=== PATIENT | male | born 1945 | race Caucasian/White ===

== ENCOUNTER → 2016-11-17 | Outpatient (CLI) | payer BC ==
[~2016-11-17] MED LIST: LISI-788 PO; NEXIUM
[2016-11-17 17:02] LABS: ALT/SGPT 28 U/L (12-78); BLOOD UREA NITROGEN 22 mg/dl (7-18); CALCIUM 9.2 mg/dl (8.5-10.1); CARBON DIOXIDE 30 mmol/L (21-32); CHLORIDE 104 mmol/L (98-107); CHOLESTEROL 141 mg/dl (0-200); GLUCOSE 93 mg/dl (70-99); POTASSIUM 4.1 mmol/L (3.5-5.1); SODIUM 140 mmol/L (136-145); TRIGLYCERIDES 152 mg/dl (0-150); VERY LOW DENSITY LIPOPROT CALC 30 mg/dl
[2016-11-17 17:07] LABS: ALB/GLOB RATIO 0.9 (0.9-2); ALKALINE PHOSPHATASE 112 U/L (45-117); AST/SGOT 23 U/L (15-37); CHOLESTEROL/HDL RATIO 2.9; HDL CHOLESTEROL 49 mg/dl; LDL CHOLESTEROL CALCULATED 62 mg/dl
[2016-11-18 05:49] LABS: ESTIMATED AVERAGE GLUCOSE 137 mg/dl; HA1C FLAG Normal (Normal)
--- NOTE | 2016-11-29 08:10 | CODING QUERY MEDICAL NECESSITY ---
CQSUPPORTING DIAGNOSIS NEEDED A supporting diagnosis is required for the test/procedure performed on this patient in order for us to be reimbursed by the patient's insurance. Please provide a supporting diagnosis for the following test/procedure listed below next to the test name along with your signature. *If there is no additional diagnosis for this patient that would support the following test/procedure please document that below next to the test/procedure. Test(s)/Procedure(s) that require a supporting diagnosis: DOS 11/17/16 PROSTATE SPECIFIC TEST Provider Signature: Date: Thank you Gabriella Dixon [employer] Once completed, please kindly fax back to [phone] For questions please call [phone]
== END | disposition home or self-care (01) ==
LOC: C.LABBC 12:56
PROVIDERS: ATTEND Internal Medicine Geriatric Medicine
DX: Z00.00 Encounter for general adult medical examination without abnormal findings (principal); I10 Essential (primary) hypertension; R73.9 Hyperglycemia, unspecified

== ENCOUNTER → 2017-04-29 | Outpatient (CLI) | payer BC ==
[2017-04-29 10:35] LABS: BASO % 0.2 %; BASO ABS # 0.02 K/uL (0-0.2); EOS % 0.1 %; EOS ABS # 0.01 K/uL (0-0.5); HEMATOCRIT 43.1 % (42-52); HEMOGLOBIN 15.4 g/dL (14.0-18.0); IG# 0.04 K/uL (0.00-0.02); LYMPH % 5.9 %; LYMPH ABS # 0.72 K/uL (1.2-3.4); MEAN CELL VOLUME 87.6 fL (80-100); MEAN CORPUSCULAR HEMOGLOBIN 31.3 pg (25-34); MEAN CORPUSCULAR HGB CONC 35.7 g/dl (32-36); MEAN PLATELET VOLUME 9.7 fL (7.4-10.4); MONO ABS # 0.49 K/uL (0.11-0.59); NEUT % 89.5 %; NEUT ABS # 10.97 K/uL (1.4-6.5); PLATELET COUNT 240 K/uL (130-400); RED CELL DISTRIBUTION WIDTH CV 12.8 % (11.5-14.5); RED CELL DISTRIBUTION WIDTH SD 40.8 fL (36.4-46.3); WHITE BLOOD COUNT 12.25 K/uL (4.8-10.8)
== END | disposition home or self-care (01) ==
LOC: C.LAB1850 09:00
PROVIDERS: ATTEND Internal Medicine
DX: M10.9 Gout, unspecified (principal); M79.89 Other specified soft tissue disorders

== ENCOUNTER 2019-08-15 13:48 | Observation (INO) ==
--- NOTE | 2019-08-15 14:09 | Emergency Department Note ---
Impression & Plan Vasculitis, Cellulitis, Edema ED Provider Note NAME: NGUYEN VEGA AGE: 74 SEX: M : 1945 ARRIVES VIA: Walk-In INFORMANT: Patient ED PROVIDER(S): Raul Sandoval DO CHIEF COMPLAINT: Redness on the bilateral lower extremities HPI: Patient is a 74-year-old male who presents the ER for redness on his bilateral lower extremities. He notes it was on the left anterior rios and started 6 months ago. Has gotten worse over the past 3 weeks. He was placed on Keflex for a total of a week which he took 4 times a day. He notes the redness has gotten worse. Skin skin has minimal tenderness.. In the past 24 hours his right leg has become red and the cath and in the toes. There is no peeling off of skin. Denies any headache, change in vision, chest pain shortness of breath nausea vomiting or diarrhea. No dysuria urgency or frequency. He denies any other exacerbating or remitting factors. He does admit to new swelling in his lower extremities which is worse. ROS: See above HPI for pertinent positives & negatives. A total of 10 systems reviewed and were otherwise negative. PAST MEDICAL HISTORY:See Below PAST SURGICAL HISTORY:See Below FAMILY HISTORY:See Below SOCIAL HISTORY:See Below HOME MEDICATIONS:See Below ALLERGIES:See Below VITALS:See Below PHYSICAL EXAMINATION: GENERAL: Sitting up in bed, alert, well appearing, well nourished, no distress, non-toxic EYE EXAM: normal conjunctiva. PERRL and EOM's grossly intact. OROPHARYNX: no exudate, no erythema, lips, buccal mucosa, and tongue normal and mucous membranes are moist NECK: supple, no nuchal rigidity, no adenopathy, non-tender LUNGS: Clear to auscultation. Normal chest wall mechanics HEART: no murmurs, S1 normal and S2 normal ABDOMEN: abdomen soft, non-tender, normo-active bowel sounds, no masses, no rebound or guarding. BACK: Back is symmetrical on inspection and there is no deformity, no midline tenderness, no CVA tenderness. SKIN: no rashes and no bruising UPPER EXTREMITIES: upper extremities are grossly normal. LOWER EXTREMITIES: Pitting edema in the bilateral lower extremities which is equal. Petechiae on the right and left lower extremity. DPs are 2 out of 4. Gross sensation intact. Appears to have chronic erythema of the left mid rios. NEURO EXAM: Normal sensorium, cranial nerves II-XII grossly intact, normal speech, no gross weakness of arms, no gross weakness of legs. MEDICAL DECISION MAKING: Patient is a 74-year-old male that presents the ER referred in by PCP for erythema in the bilateral lower extremities. Seen by the PCP. Placed on Keflex and the rash has worsened over the past 2 weeks. He was referred into the ER today as at the office he was hypotensive with systolics in the 90s. Upon presentation he is otherwise well-appearing. IV was established blood work was obtained. Labs show no significant leukocytosis or anemia. BMP with slightly elevated creatinine 1.68 from a baseline of 1. LFTs bilirubin and lipase was unremarkable. Venous Doppler was negative bilaterally. Based on the exam I do question if he had a mild cellulitis in the left mid rios however I favor with a clear petechiae of the right lower extremity and left likely vasculitis in nature. Uncertain of the clear cause of this. Updated the patient and discussed with the hospitalist for observation. Held on any antibiotics while in the ER. Triage Nursing notes reviewed. Prior medical records reviewed Vital Signs: reviewed and remarkable for no significant abnormalities Differential diagnosis: Cellulitis, abscess, MRSA infection, DVT, necrotizing fasciitis, dermatitis, drug eruption, allergic reaction, as well as other pathologies. ER treatment provided: See below Diagnostics interpreted by me: ECG: Sinus rhythm rate 74 Normal axis No PVCs Normal QTC Cardiac Monitoring: An order was placed for continuous cardiac monitoring. The monitor shows a rate of 75 with sinus rhythm. Laboratory studies: As stated above and show below. Imaging studies: Duplex of the lower extremities was negative Consultation(s): Discussed with Dr. Don Castorena ED COURSE: Procedures: none Critical Care: None Past Med/Surg History Social History Preferred Language: Beninese Feels Safe at Home: Yes Smoking Status: Former smoker Allergies Allergies Allergy/AdvReac Type Severity Reaction Status Date / Time No Known Allergies Allergy Verified 08/15/19 14:56 Home Meds Home Medications Medication Instructions Recorded Confirmed amlodipine [Norvasc] 10 mg PO QAM 08/15/19 08/15/19 atorvastatin [Lipitor] 10 mg PO QAM 08/15/19 08/15/19 carvedilol [Coreg] 3.125 mg PO BID 08/15/19 08/15/19 hydrochlorothiazide 12.5 mg PO QAM 08/15/19 08/15/19 lisinopril [Zestril] 40 mg PO QAM 08/15/19 08/15/19 Previous Rx's Medication Instructions Recorded allopurinol 300 mg tablet 150 mg PO QPM #90 tab 05/16/19 cephalexin 500 mg capsule 500 mg PO QID #40 cap 08/06/19 Results & Data (ED) Vital Signs Vital Signs - 24 hr 08/15/19 13:50 08/15/19 16:08 Temperature 37.1 C Temperature Source Oral Pulse Rate 88 Pulse Rate [Right Finger] 75 Respiratory Rate 18 20 Respiratory Effort / Characteristics Non-Labored Non-Labored Respiratory Depth Normal Normal Respiratory Pattern Regular Blood Pressure 106/62 Blood Pressure [Right Arm] 124/64 Blood Pressure Mean 76 Blood Pressure Mean [Right Arm] 84 Pulse Oximetry 95 97 Oxygen Delivery Method Room Air Room Air Sepsis Recent Fever Within 48 Hours No Sepsis New/Unexplained Change in Mental Status No Sepsis Action Taken by Nursing No Action Required Laboratory Data Result diagrams: 08/15/19 14:35 08/15/19 14:35 Lab Results 08/15/19 08/15/19 08/15/19 Range/Units 14:35 14:35 14:35 WBC 9.65 (4.8-10.8) K/uL RBC 3.99 L (4.7-6.1) M/uL Hgb 12.2 L (14.0-18.0) g/dL Hct 35.7 L (42-52) % MCV 89.5 (80-100) fL MCH 30.6 (25-34) pg MCHC 34.2 (32-36) g/dL RDW Std Deviation 43.6 (36.4-46.3) fL RDW Coeff of Ron 13.3 (11.5-14.5) % Plt Count 273 (130-400) K/uL MPV 9.3 (7.4-10.4) fL Immature Gran % (Auto) 0.3 % Neut % (Auto) 71.3 % Lymph % (Auto) 15.6 % Kay % (Auto) 11.8 % Eos % (Auto) 0.7 % Baso % (Auto) 0.3 % Immature Gran # (Auto) 0.03 H (0.00-0.02) K/uL Neut # (Auto) 6.87 H (1.4-6.5) K/uL Lymph # (Auto) 1.51 (1.2-3.4) K/uL Kay # (Auto) 1.14 H (0.11-0.59) K/uL Eos # (Auto) 0.07 (0-0.5) K/uL Baso # (Auto) 0.03 (0-0.2) K/uL Sodium 135 L (136-145) mmol/L Potassium 4.1 (3.5-5.1) mmol/L Chloride 105 (98-107) mmol/L Carbon Dioxide 22 (21-32) mmol/L Anion Gap 8.0 (3-11) BUN 39 H (7-18) mg/dl Creatinine 1.68 H (0.6-1.4) mg/dl Est Cr Clr Drug Dosing 49.6 ml/min Est GFR ( Amer) 46.3 Est GFR (Non-Af Amer) 40.0 BUN/Creatinine Ratio 23.3 H (10-20) Glucose 109 H (70-99) mg/dl Calcium 8.9 (8.5-10.1) mg/dl Total Bilirubin 0.7 (0.2-1) mg/dl AST 38 H (15-37) U/L ALT 55 (12-78) U/L Alkaline Phosphatase 114 (45-117) U/L Troponin I < 0.015 (0-0.045) ng/ml Total Protein 7.8 (6.4-8.2) gm/dl Albumin 2.8 L (3.4-5.0) gm/dl Globulin 5.0 H (2.5-4.0) gm/dl Albumin/Globulin Ratio 0.6 L (0.9-2) Lipase 191 (73-393) U/L Discharge Plan Visit Data Chief Complaint: Infection Stated Complaint: INFECTION IN BOTH LEGS ED Provider: Raul Sandoval Discharge Problem: Vasculitis, Cellulitis, Edema Forms Stand Alone Forms: [facility] Prescriptions Prescriptions: No Action allopurinol 300 mg tablet 150 mg PO QPM Qty: 90 RF: 3 cephalexin [Keflex] 500 mg capsule 500 mg PO QID Qty: 40 RF: 0 atorvastatin [Lipitor] 10 mg tablet 10 mg PO QAM RF: 0 carvedilol [Coreg] 3.125 mg tablet 3.125 mg PO BID RF: 0 amlodipine [Norvasc] 10 mg tablet 10 mg PO QAM RF: 0 lisinopril [Zestril] 40 mg tablet 40 mg PO QAM RF: 0 hydrochlorothiazide 12.5 mg tablet 12.5 mg PO QAM RF: 0 Discharge Problem: Cellulitis Qualifiers: Site of cellulitis: unspecified site Qualified Code(s): L03.90 - Cellulitis, unspecified Edema Qualifiers: Edema type: unspecified Qualified Code(s): R60.9 - Edema, unspecified
[2019-08-15 14:47] LABS: Basophils # (auto) 0.03 K/uL (0-0.2); Basophils % (auto) 0.3 %; Eosinophils # (auto) 0.07 K/uL (0-0.5); Eosinophils % (auto) 0.7 %; Hematocrit (blood only) 35.7 % (42-52); Hemoglobin 12.2 g/dL (14.0-18.0); Immature Granulocytes # (auto) 0.03 K/uL (0.00-0.02); Immature Granulocytes % (auto) 0.3 %; Lymphocytes # (auto) 1.51 K/uL (1.2-3.4); Lymphocytes % (auto) 15.6 %; Mean Corpuscular Hemoglobin 30.6 pg (25-34); Mean Corpuscular Hgb Conc 34.2 g/dL (32-36); Mean Corpuscular Volume 89.5 fL (80-100); Mean Platelet Volume 9.3 fL (7.4-10.4); Monocytes # (auto) 1.14 K/uL (0.11-0.59); Monocytes % (auto) 11.8 %; Neutrophils # (auto) 6.87 K/uL (1.4-6.5); Neutrophils % (auto) 71.3 %; Platelet Count 273 K/uL (130-400); RDW Coefficient of Variation 13.3 % (11.5-14.5); RDW Standard Deviation 43.6 fL (36.4-46.3); Red Blood Count 3.99 M/uL (4.7-6.1); White Blood Count 9.65 K/uL (4.8-10.8)
[2019-08-15 15:03] LABS: Albumin Level 2.8 gm/dl (3.4-5.0); BUN Creatinine Ratio 23.3 (10-20); Calcium 8.9 mg/dl (8.5-10.1); Creatinine Clr Calc Pharmacy 49.6 ml/min; Est GFR (African American) 46.3; Potassium 4.1 mmol/L (3.5-5.1)
[2019-08-15 15:06] LABS: Albumin Globulin Ratio 0.6 (0.9-2); Bilirubin,Total 0.7 mg/dl (0.2-1); Total Protein 7.8 gm/dl (6.4-8.2)
--- NOTE | 2019-08-15 15:50 | Ultrasound Report ---
ULTRASOUND BILATERAL LOWER EXTREMITY VENOUS CLINICAL HISTORY: Lower extremity edema. COMPARISON STUDY: Bilateral lower extremity venous ultrasound dated 08/06/2019. TECHNIQUE: Real-time, grayscale, and color Doppler sonography of the deep veins of the right and left lower extremity was performed from the inguinal crease to the calf. Compression and augmentation wer e utilized. FINDINGS: There is no sonographic evidence of deep venous thrombosis identified in the right or left lower extremity. The common femoral, superficial femoral, and popliteal veins are patent and normally compressible bilaterally. The greater saphenous vein and the profunda femoris vein at the junction w ith the common femoral vein are clear in both legs. The visualized calf veins are patent bilaterally. IMPRESSION: There is no sonographic evidence of deep venous thrombosis identified in the right or lef t lower extremity. ACT 112: Negative or not required by law. Electronically signed by: Sukh Bardales M.D. 08/15/2019 3:48 PM
--- NOTE | 2019-08-15 17:17 | Electrocardiogram Report ---
Test Reason : Blood Pressure : / mmHG Vent. Rate : 074 BPM Atrial Rate : 074 BPM P-R Int : 132 ms QRS Dur : 088 ms QT Int : 386 ms P-R-T Axes : 061 028 010 degrees QTc Int : 428 ms Normal sinus rhythm Normal ECG No previous ECGs available Confirmed by Lance Ballesteros ([id number]) on 08/15/2019 5:17:30 PM Referred By: REFERRED SELF Confirmed By:Kyrie Ballesteros
[2019-08-15] MEDS ORDERED: NITROGLYCERIN SL 0.4 MG/TAB TAB SL PRN (17:35)
[2019-08-15] MEDS ORDERED: POLYETHYLENE (MIRALAX) 17 GM PACK PO PRN (17:35)
[2019-08-15] MEDS ORDERED: ALUMINUM/MAGNESIUM SUSP 30 ML UDC PO PRN (17:35)
[2019-08-15] MEDS ORDERED: MAGNESIUM HYDROXIDE SUSP 30 ML UDC PO PRN (17:35)
[2019-08-15] MEDS ORDERED: ACETAMINOPHEN 325 MG TAB PO PRN (17:35)
[2019-08-15] MEDS ORDERED: ONDANSETRON INJ 2 MG/ML 2 ML VIAL IV PRN (17:35)
--- NOTE | 2019-08-15 18:31 | History & Physical Report ---
Date of Service August 15, 2019 Assessment & Plan (1) Vasculitis: 74 yo M with gout, HTN, Dm2, with bilateral lower extremity rash concerning for vasculitis. 1) Rash - polyarteritis nodosa vs. renal autoimmune disease vs. lupus? - KARMEN, c-ANCA, p-ANCA, ESR, CRP, Complement C3, C4, C5 to widely screen for vasculitis - renal doppler ultrasound with full renal imaging to evaluate for renal involvement given elevated creatinine - less likely infectious given normal WBC. - blood cultures ordered to rule out bacteremia given long hx of rash/cellulitic presentation - UA to evaluate for casts, sediment, blood, protein loss - plan to biopsy rashes tomorrow 2) HTN - home medications (amlodipine, HCTZ, carvedilol) continued 3) Gout - contiinue home allopurinol DVT ppx: not indicated, up adlib FEN/GI: regular diet Code status: full code Dispo: med/surg (2) Gout, joint: (3) Hypertension: (4) Obesity, Class I, BMI 30-34.9: (5) Type 2 diabetes mellitus: History of Present Illness Pt is a 74 yo M with a hx of gout and HTN presenting to the ED with worsening rash and cellulitis of the lower legs. States that rash on the left lower extremity has been present since November. He states that this has been steadily getting worse however the deterioration has been largest in the past 3 weeks. At that time he sought care and was placed on Keflex for presumed cellulitis and did think that the rash on the left leg improved a little bit with the antibiotic. He notes that in the past week a rash also formed on the anterior right rios that started centrally and expanded outward, similar to how the left leg rash expanded. He states that the rashes are occasionally itchy however if he does not scratch at them the itching goes away. They are not painful at rest. He denies any new medications or exposures that he is aware of. He denies any known tick bites or insect bites. He denies any joint pain, fever, headaches, vision changes. He does attest to having nausea, decreased appetite and a weight loss of 2 to 3 pounds in the last 3 to 4 days with concomitant watery diarrhea/loose stools that self resolved. He did not have any episodes of vomiting during this timeline. Last night he noted that he went to bed with some chills and woke up in a sweat but otherwise denies chills and night sweats. He has never had a rash like this before and denies any personal or family history of autoimmune disease. Surgical history: Never has had surgery Allergies: No allergies Social: Drinks a beer once a month, does not use any form of tobacco, has never participated in illicit drug use including IV drug abuse. Has never been tested for or tested positive for sexually transmitted diseases including syphilis. Primary Care Provider: Jarett Kam DO Allergies Allergy/AdvReac Type Severity Reaction Status Date / Time No Known Allergies Allergy Verified 08/15/19 14:56 Home Medications Home Medications Medication Instructions Recorded Confirmed Type allopurinol 300 mg tablet 150 mg PO QPM #90 tab 05/16/19 08/15/19 Rx cephalexin 500 mg capsule 500 mg PO QID #40 cap 08/06/19 08/15/19 Rx amlodipine [Norvasc] 10 mg PO QAM 08/15/19 08/15/19 History atorvastatin [Lipitor] 10 mg PO QAM 08/15/19 08/15/19 History carvedilol [Coreg] 3.125 mg PO BID 08/15/19 08/15/19 History hydrochlorothiazide 12.5 mg PO QAM 08/15/19 08/15/19 History lisinopril [Zestril] 40 mg PO QAM 08/15/19 08/15/19 History Past Med/Surg History Social History Preferred Language: Portuguese Communication Ability: Effective Synthetic Staple Extruder Required: No Beliefs That Will Affect Care: None Current Living Situation: Spouse Other Information That Helps Us Care for You: No Feels Safe at Home: Yes Smoking Status: Former smoker Do You Dip or Chew Tobacco: No ; Second Hand Exposure: No ; Tobacco Cessation Education Requested by Patient: No Hx Alcohol Use: Yes Alcohol type: beer and hard liquor Hx Substance Use: No Review of Systems Constitutional: + anorexia and + weight loss; no fever, no chills, no sweats, no body aches and no weakness Eyes: no diplopia Respiratory: no cough, no dyspnea, no pain on inspiration and no wheezing Cardiovascular: + edema; no chest pain, no dyspnea on exertion and no palpitations Gastrointestinal: + early satiety, + nausea and + diarrhea/loose stools; no abdominal pain, no vomiting, no cramping, no constipation and no blood in stools Integumentary: + rash Neurologic: no unsteadiness and no generalized weakness Hematologic / Lymphatic: no night sweats Physical Exam Constitutional: well developed, well nourished and + obese; no acute distress and not ill appearing Eyes: PERRL, conjunctivae normal, anicteric sclerae Respiratory: normal respiratory effort, lungs clear to auscultation Auscultation: no crackles, no rales, no rhonchi and no wheezes Cardiovascular: Rate/Rhythm: regular rate and regular rhythm Heart Sounds: normal S1 and normal S2; no click, no gallop, no murmur and no cardiac rub 1+ pitting edema to mid-rios bilaterally Gastrointestinal (Abdomen): Inspection/Auscultation: abdomen normal to inspection and normal bowel sounds; abdomen not distended Percussion/Palpation: abdomen soft; abdomen nontender and no guarding Skin: Left rios: dark red flat, blanching, nonpalpable purpura over midshin with peripheral nonblanching macules Right rios: red, nonblanching, nonpalpable, macules spread throughout rios with a section of coalescing rash that has a central clearing. Soles of feet: few nonblanching red macules. No lesions on palms of hands. Results & Data Results & Data ([facility]) Vital Signs (Past 12 Hours) Vital Signs Temp Pulse Pulse Resp BP BP Pulse Ox 08/15/19 16:08 75 20 124/64 97 08/15/19 13:50 37.1 C 88 18 106/62 95 Laboratory Results WBC 9.65 K/uL (4.8-10.8) 08/15/19 14:35 RBC 3.99 M/uL (4.7-6.1) L 08/15/19 14:35 Hgb 12.2 g/dL (14.0-18.0) L 08/15/19 14:35 Hct 35.7 % (42-52) L 08/15/19 14:35 MCV 89.5 fL (80-100) 08/15/19 14:35 MCH 30.6 pg (25-34) 08/15/19 14:35 MCHC 34.2 g/dL (32-36) 08/15/19 14:35 RDW Std Deviation 43.6 fL (36.4-46.3) 08/15/19 14:35 RDW Coeff of Ron 13.3 % (11.5-14.5) 08/15/19 14:35 Plt Count 273 K/uL (130-400) 08/15/19 14:35 MPV 9.3 fL (7.4-10.4) 08/15/19 14:35 Immature Gran % (Auto) 0.3 % 08/15/19 14:35 Neut % (Auto) 71.3 % 08/15/19 14:35 Lymph % (Auto) 15.6 % 08/15/19 14:35 [place] % (Auto) 11.8 % 08/15/19 14:35 Eos % (Auto) 0.7 % 08/15/19 14:35 Baso % (Auto) 0.3 % 08/15/19 14:35 Immature Gran # (Auto) 0.03 K/uL (0.00-0.02) H 08/15/19 14:35 Neut # (Auto) 6.87 K/uL (1.4-6.5) H 08/15/19 14:35 Lymph # (Auto) 1.51 K/uL (1.2-3.4) 08/15/19 14:35 [place] # (Auto) 1.14 K/uL (0.11-0.59) H 08/15/19 14:35 Eos # (Auto) 0.07 K/uL (0-0.5) 08/15/19 14:35 Baso # (Auto) 0.03 K/uL (0-0.2) 08/15/19 14:35 Sodium 135 mmol/L (136-145) L 08/15/19 14:35 Potassium 4.1 mmol/L (3.5-5.1) 08/15/19 14:35 Chloride 105 mmol/L (98-107) 08/15/19 14:35 Carbon Dioxide 22 mmol/L (21-32) 08/15/19 14:35 Anion Gap 8.0 (3-11) 08/15/19 14:35 BUN 39 mg/dl (7-18) H 08/15/19 14:35 Creatinine 1.68 mg/dl (0.6-1.4) H 08/15/19 14:35 Est Cr Clr Drug Dosing 49.6 ml/min 08/15/19 14:35 Est GFR ( Amer) 46.3 08/15/19 14:35 Est GFR (Non-Af Amer) 40.0 08/15/19 14:35 BUN/Creatinine Ratio 23.3 (10-20) H 08/15/19 14:35 Glucose 109 mg/dl (70-99) H 08/15/19 14:35 Calcium 8.9 mg/dl (8.5-10.1) 08/15/19 14:35 Total Bilirubin 0.7 mg/dl (0.2-1) 08/15/19 14:35 AST 38 U/L (15-37) H 08/15/19 14:35 ALT 55 U/L (12-78) 08/15/19 14:35 Alkaline Phosphatase 114 U/L (45-117) 08/15/19 14:35 Troponin I < 0.015 ng/ml (0-0.045) 08/15/19 14:35 Total Protein 7.8 gm/dl (6.4-8.2) 08/15/19 14:35 Albumin 2.8 gm/dl (3.4-5.0) L 08/15/19 14:35 Globulin 5.0 gm/dl (2.5-4.0) H 08/15/19 14:35 Albumin/Globulin Ratio 0.6 (0.9-2) L 08/15/19 14:35 Lipase 191 U/L (73-393) 08/15/19 14:35 Supervising Physician Co-Signing Physician Notes Patient seen and examined independently of PGY-1 Dr. Otero. We discussed the case in detail. Agree with history, exam findings, assessment and plan of care. In brief, Mr. Nieves is a 74 year old male with history of HTN and gout sent for evaluation from his PCP's office with concerns of worsening redness of the bilateral legs. He initially had a red rash on the left anterior rios in November. He was seen by his PCP's office and was started on keflex for presumed cellulitis. Around this same time, he noticed some increased swelling/edema in the LLE. He was started on toresemide. However, this was later switched to HCTZ. He tells me that the redness never actually resolved. It was always there in some form. Over the last 3 weeks, the left rios rash became worse and he re- presented to his PCP's office and was again given keflex. However, the rash did not improve and in fact, he noticed a new rash on the right skin/lateral lower leg. Denies fevers. Has felt a bit fatigued lately. In the last 3 weeks, weight has been down 3-4 pounds Denies night sweats, although does admit that last night had some chills and woke up feeling a bit diaphoretic. His appetite has been down in the last couple of days. Denies new myalgias, arthralgias, gritty sensation in the eye, eye pain, dry eye, new light sensitivity, changes in vision. Denies new paresthesias or weakness. Denies outdoor activities in the caro or recent bug bites. HCTZ is the only new medication since this all started. Denies trauma to the legs or skin. VS, labs, and previous imaging reviewed. LE duplex negative for DVT. ED notes reviewed. Well appearing elderly gentleman. Skin rash as described above by Dr. Otero. Left anterior rios with purpuric, non-blanching area with nondistinct borders. Right leg with a circular area of non-blanching erythema with an area of central clearing. Smaller satellite type non-blanching lesions. There is trace to 1+ pitting edema of the left rios. 1. bilateral LE rash. history and time course seems less likely to be a superficial infection; however, will obtain blood cultures. Suspect this may be a small vessel vasculitis vs drug induced lupus. Will check KARMEN, ESR, CRP, ANCA, complement levels. Can also consider adding cryoglobulins. lower suspicion for skin manifestation of hepatitis b given normal LFTs. Punch bx tomorrow by Dr. Otero. 2. LYDIA. baseline Cr 1. Cr 1.68 on admission. Will obtaine renal artery and renal ultrasound. UA is pending--assessing for disruption of the GBM. 3, HTN/HLD. Continue home atorvastatin, amlodipine, coreg, lisinopril and HCTZ. 5. Gout. continue home allopurinol. Dispo: pending completion of work up and negative blood cultures. Patient is aware that we may not have all lab results or a conclusive diagnosis at the time of discharge, but the work up will have been started. Resident Activity Tracking Resident Involvement: Resident Care Provided Care Provided: Adult Hospital Medicine
[2019-08-15] MEDS ORDERED: HYDROCORTISONE 1% CRM 30 GM TUBE EXT PRN (18:47)
--- NOTE | 2019-08-15 20:32 | Communication Note ---
Date of Service: August 15, 2019 Notified about 8pm by nursing on the floor, that pt had been having chills in the last few days (no subjective fevers) as well as diarrhea and loss of taste and smell. No recent travel or known COVID contacts. Currently has a roommate on the floor. COVID PUI testing ordered with isolation precautions. Resident Activity Tracking Resident Involvement: Glue Maker Coverage Note Care Provided: Adult Hospital Medicine
[2019-08-15] MEDS: carvediloL 3.125 MG TAB PO SCH (21:57)
[2019-08-15] MEDS: allopurinoL 300 MG TAB PO SCH (21:58)
[2019-08-15 22:28] LABS: Appearance Urine Clear (Clear); Bacteria Urine Automated Negative (Negative); Bilirubin Urine Negative (Negative); Blood Urine 1+ (Negative); Color Urine Yellow; Epithelial Cell Urine Auto 0-5 /lpf (0-5); Glucose Urine UA Negative (Negative); Ketones Urine Negative (Negative); Leukocyte Esterase Urine Negative (Negative); Nitrite Urine Negative (Negative); Protein Urine Negative (Negative); RBC Urine Automated 0-4 /hpf (0-4); Specific Gravity Urine 1.019 (1.000-1.030); Urobilinogen Urine Negative (Negative)
--- NOTE | 2019-08-15 23:25 | Communication Note ---
Date of Service: August 15, 2019 Rapid COVID testing came back NEGATIVE. Isolation precautions discontinued. Resident Activity Tracking Resident Involvement: Group Home Counselor Coverage Note Care Provided: Adult Hospital Medicine
--- NOTE | 2019-08-16 07:07 | Ultrasound Report ---
US duplex renal artery CLINICAL HISTORY: vasculitis, renal disease COMPARISON STUDY: Doppler ultrasound of the renal arteries February 13, 2019. TECHNIQUE: Grayscale, color and duplex Doppler sonography of the abdominal aorta and renal arteries w as performed. FINDINGS: The kidneys are lobulated. There is no hydronephrosis. The right kidney measures 11.3 x 6.8 x 6.9 cm and the left measures 12.7 x 6.3 x 5.2 cm. The bilateral renal arteries and veins are patent. Peak systolic velocity within the abdominal aorta was 143 cm/s. Peak systolic velocity within the right renal artery was 145 cm/s. Peak systolic veloci ty within the left renal artery was 148 cm/s. Segmental waveforms within the kidney were normal. IMPRESSION: No evidence for renal artery stenosis. ACT 112: Negative or not required by law. Electronically signed by: Qasim Vora M.D. 08/16/2019 7:06 AM
[2019-08-16] MEDS: hydroCHLOROthiazide 25 MG TAB PO SCH (08:20)
[2019-08-16] MEDS: ATORVASTATIN 10 MG TAB PO SCH (08:20)
[2019-08-16] MEDS: carvediloL 3.125 MG TAB PO SCH ×2 (08:20→21:41)
[2019-08-16] MEDS: AMLODIPINE BESYLATE 5 MG TAB PO SCH (08:20)
[2019-08-16] MEDS: lisinopriL 40 MG TAB PO SCH (08:21)
[2019-08-16 09:18] LABS: Immunoglobulin M 54.3 mg/dl (40-230)
--- NOTE | 2019-08-16 10:17 | Hospitalist Progress Note ---
Date of Service August 16, 2019 Assessment & Plan (1) Vasculitis: 74 yo M with gout, HTN, Dm2, with bilateral lower extremity rash concerning for vasculitis. 1) Rash - polyarteritis nodosa vs. renal autoimmune disease vs. lupus? - KARMEN, c-ANCA, p-ANCA, Complement C3, C4, C5 to widely screen for vasculitis - ESR 66, CRP 11, - IgA, IgM, IgG normal - renal doppler ultrasound: normal - less likely infectious given normal WBC. - blood cultures ordered to rule out bacteremia given long hx of rash/cellulitic presentation - UA: 1 + blood, otherwise negative - punchh biopsy of right leg sent to pathology for cytology and staining 2) LYDIA Cr- 1.68. - follow repeat bmp in AM 3) HTN - home medications (amlodipine, HCTZ, carvedilol) continued 4) Gout - contiinue home allopurinol DVT ppx: not indicated, up ad yahir FEN/GI: regular diet Code status: full code Dispo: med/surg (2) Gout, joint: (3) Hypertension: (4) Obesity, Class I, BMI 30-34.9: (5) Type 2 diabetes mellitus: Admission and Anticipated Discharge Date Admission Date: August 15, 2019 Supervising Physician Co-Signing Physician Notes Attending attestation Pt seen and examined in concert with Dr. Otero. In agreement with the documented findings as noted in the resident documentation with any exceptions or additions as noted here. Persistent unchanged rash and swelling of the LE. On examination, S1/S2 nl RRR no MCG. CTAB. Abd NT/ND BS+ve. LLE with confluent erythematous indurated rash c/w cellulitis, RLE with punctate nonblanching ?petechial with central clearing and scattered distal petechiae Rash - LLE rash more c/w cellulitis, so will f/u culture and taper abx when available. RLE rash more vascular appearing, punch bx warranted this PM. Follow up send out labs. LYDIA - improving. Else see resident documentation as noted. Subjective No complaints this AM. Feeling well. Overnight time told that patient was complaining of lack of smell + lack of taste. In asking patient about this, he states it started a few days ago but is better this morning. Review of Systems Constitutional: no fever, no chills, no body aches and no fatigue Respiratory: no cough and no dyspnea Cardiovascular: no chest pain, no dyspnea and no edema Gastrointestinal: no abdominal pain, no nausea, no vomiting, no constipation and no diarrhea/loose stools Physical Exam Constitutional: cooperative; no acute distress and not ill appearing Neck: normal visual inspection Respiratory: normal respiratory effort and able to speak in complete sentences; no respiratory distress, no labored breathing, no retractions, no cough and no audible wheezes Auscultation: lungs clear to auscultation bilaterally; no crackles, no rales, no rhonchi and no wheezes Cardiovascular: Rate/Rhythm: regular rate and regular rhythm Heart Sounds: normal S1 and normal S2; no gallop, no murmur and no cardiac rub Vessels: posterior tibial pulses present Extremities: no pedal edema and no edema Gastrointestinal (Abdomen): Inspection/Auscultation: abdomen normal to inspection and normal bowel sounds; abdomen not distended Percussion/Palpation: abdomen soft; abdomen nontender, no guarding, abdomen not rigid and no abdominal mass Skin: right leg mildly slat basket maker than yesterday. left leg unchanged. Results & Data Results & Data ([facility]) Vital Signs (Past 12 Hours) Vital Signs Temp Pulse Resp BP Pulse Ox 08/16/19 07:55 36.7 C 72 20 126/72 96 Laboratory Results WBC 9.65 K/uL (4.8-10.8) 08/15/19 14:35 RBC 3.99 M/uL (4.7-6.1) L 08/15/19 14:35 Hgb 12.2 g/dL (14.0-18.0) L 08/15/19 14:35 Hct 35.7 % (42-52) L 08/15/19 14:35 MCV 89.5 fL (80-100) 08/15/19 14:35 MCH 30.6 pg (25-34) 08/15/19 14:35 MCHC 34.2 g/dL (32-36) 08/15/19 14:35 RDW Std Deviation 43.6 fL (36.4-46.3) 08/15/19 14:35 RDW Coeff of Ron 13.3 % (11.5-14.5) 08/15/19 14:35 Plt Count 273 K/uL (130-400) 08/15/19 14:35 MPV 9.3 fL (7.4-10.4) 08/15/19 14:35 Immature Gran % (Auto) 0.3 % 08/15/19 14:35 Neut % (Auto) 71.3 % 08/15/19 14:35 Lymph % (Auto) 15.6 % 08/15/19 14:35 [place] % (Auto) 11.8 % 08/15/19 14:35 Eos % (Auto) 0.7 % 08/15/19 14:35 Baso % (Auto) 0.3 % 08/15/19 14:35 Immature Gran # (Auto) 0.03 K/uL (0.00-0.02) H 08/15/19 14:35 Neut # (Auto) 6.87 K/uL (1.4-6.5) H 08/15/19 14:35 Lymph # (Auto) 1.51 K/uL (1.2-3.4) 08/15/19 14:35 Trinity # (Auto) 1.14 K/uL (0.11-0.59) H 08/15/19 14:35 Eos # (Auto) 0.07 K/uL (0-0.5) 08/15/19 14:35 Baso # (Auto) 0.03 K/uL (0-0.2) 08/15/19 14:35 ESR 66 mm/hr (0-14) H 08/15/19 14:35 Sodium 135 mmol/L (136-145) L 08/15/19 14:35 Potassium 4.1 mmol/L (3.5-5.1) 08/15/19 14:35 Chloride 105 mmol/L (98-107) 08/15/19 14:35 Carbon Dioxide 22 mmol/L (21-32) 08/15/19 14:35 Anion Gap 8.0 (3-11) 08/15/19 14:35 BUN 39 mg/dl (7-18) H 08/15/19 14:35 Creatinine 1.68 mg/dl (0.6-1.4) H 08/15/19 14:35 Est Cr Clr Drug Dosing 49.6 ml/min 08/15/19 14:35 Est GFR ( Amer) 46.3 08/15/19 14:35 Est GFR (Non-Af Amer) 40.0 08/15/19 14:35 BUN/Creatinine Ratio 23.3 (10-20) H 08/15/19 14:35 Glucose 109 mg/dl (70-99) H 08/15/19 14:35 Calcium 8.9 mg/dl (8.5-10.1) 08/15/19 14:35 Total Bilirubin 0.7 mg/dl (0.2-1) 08/15/19 14:35 AST 38 U/L (15-37) H 08/15/19 14:35 ALT 55 U/L (12-78) 08/15/19 14:35 Alkaline Phosphatase 114 U/L (45-117) 08/15/19 14:35 Troponin I < 0.015 ng/ml (0-0.045) 08/15/19 14:35 C-Reactive Protein 11.60 mg/dl (0-0.29) H 08/15/19 14:35 Total Protein 7.8 gm/dl (6.4-8.2) 08/15/19 14:35 Albumin 2.8 gm/dl (3.4-5.0) L 08/15/19 14:35 Globulin 5.0 gm/dl (2.5-4.0) H 08/15/19 14:35 Albumin/Globulin Ratio 0.6 (0.9-2) L 08/15/19 14:35 Lipase 191 U/L (73-393) 08/15/19 14:35 Urine Color Yellow 08/15/19 Unknown Urine Appearance Clear (Clear) 08/15/19 Unknown Urine pH 5.0 (4.5-7.5) 08/15/19 Unknown Ur Specific [place] 1.019 (1.000-1.030) 08/15/19 Unknown Urine Protein Negative (Negative) 08/15/19 Unknown Urine Glucose (UA) Negative (Negative) 08/15/19 Unknown Urine Ketones Negative (Negative) 08/15/19 Unknown Urine Blood 1+ (Negative) H 08/15/19 Unknown Urine Nitrite Negative (Negative) 08/15/19 Unknown Urine Bilirubin Negative (Negative) 08/15/19 Unknown Urine Urobilinogen Negative (Negative) 08/15/19 Unknown Ur Leukocyte Esterase Negative (Negative) 08/15/19 Unknown Urine WBC (Auto) 1-5 /hpf (0-5) 08/15/19 Unknown Urine RBC (Auto) 0-4 /hpf (0-4) 08/15/19 Unknown U Hyaline Cast (Auto) 1-5 /lpf (0-5) 08/15/19 Unknown U Epithel Cells (Auto) 0-5 /lpf (0-5) 08/15/19 Unknown Urine Bacteria (Auto) Negative (Negative) 08/15/19 Unknown IgG 1370.0 mg/dl (700-1600) 08/16/19 08:15 IgA 329.0 mg/dl (70-400) 08/16/19 08:15 IgM 54.3 mg/dl (40-230) 08/16/19 08:15 COVID-19 PCR NEGATIVE (Negative) 08/15/19 Unknown Resident Activity Tracking Resident Involvement: Resident Care Provided Care Provided: Adult Hospital Medicine
[2019-08-16] MEDS ORDERED: LIDOCAINE HCL 1% 20 ML VIAL ONE (15:01)
[2019-08-16] MEDS: allopurinoL 300 MG TAB PO SCH (21:41)
[2019-08-17] MEDS: AMLODIPINE BESYLATE 5 MG TAB PO SCH (08:23)
[2019-08-17] MEDS: lisinopriL 40 MG TAB PO SCH (08:23)
[2019-08-17] MEDS: carvediloL 3.125 MG TAB PO SCH (08:23)
[2019-08-17] MEDS: hydroCHLOROthiazide 25 MG TAB PO SCH (08:24)
[2019-08-17] MEDS: ATORVASTATIN 10 MG TAB PO SCH (08:24)
[2019-08-17 08:40] LABS: BUN Creatinine Ratio 26.3 (10-20); Calcium 8.9 mg/dl (8.5-10.1); Creatinine Clr Calc Pharmacy 69.4 ml/min; Est GFR (African American) 69.6; Est GFR (Non-African American) 60.1; Potassium 4.3 mmol/L (3.5-5.1)
--- NOTE | 2019-08-17 10:53 | Discharge Summary ---
Date of Service August 17, 2019 Admission HPI Per Admitting Provider Pt is a 74 yo M with a hx of gout and HTN presenting to the ED with worsening rash and cellulitis of the lower legs. States that rash on the left lower extremity has been present since November. He states that this has been steadily getting worse however the deterioration has been largest in the past 3 weeks. At that time he sought care and was placed on Keflex for presumed cellulitis and did think that the rash on the left leg improved a little bit with the antibiotic. He notes that in the past week a rash also formed on the anterior right rios that started centrally and expanded outward, similar to how the left leg rash expanded. He states that the rashes are occasionally itchy however if he does not scratch at them the itching goes away. They are not painful at rest. He denies any new medications or exposures that he is aware of. He denies any known tick bites or insect bites. He denies any joint pain, fever, headaches, vision changes. He does attest to having nausea, decreased appetite and a weight loss of 2 to 3 pounds in the last 3 to 4 days with concomitant watery diarrhea/loose stools that self resolved. He did not have any episodes of vomiting during this timeline. Last night he noted that he went to bed with some chills and woke up in a sweat but otherwise denies chills and night sweats. He has never had a rash like this before and denies any personal or family history of autoimmune disease. Surgical history: Never has had surgery Allergies: No allergies Social: Drinks a beer once a month, does not use any form of tobacco, has never participated in illicit drug use including IV drug abuse. Has never been tested for or tested positive for sexually transmitted diseases including syphilis. Primary Care Provider: Jarett Kam, DO Admission Exam Per Admitting Provider Constitutional: well developed, well nourished and + obese; no acute distress and not ill appearing Eyes: PERRL, conjunctivae normal, anicteric sclerae Respiratory: normal respiratory effort, lungs clear to auscultation Auscultation: no crackles, no rales, no rhonchi and no wheezes Cardiovascular: Rate/Rhythm: regular rate and regular rhythm Heart Sounds: normal S1 and normal S2; no click, no gallop, no murmur and no cardiac rub 1+ pitting edema to mid-rios bilaterally Gastrointestinal (Abdomen): Inspection/Auscultation: abdomen normal to inspection and normal bowel sounds; abdomen not distended Percussion/Palpation: abdomen soft; abdomen nontender and no guarding Skin: Left rios: dark red flat, blanching, nonpalpable purpura over midshin with peripheral nonblanching macules Right rios: red, nonblanching, nonpalpable, macules spread throughout rios with a section of coalescing rash that has a central clearing. Soles of feet: few nonblanching red macules. No lesions on palms of hands. Principal Diagnosis rash, vasculitis Discharge Exam Constitutional cooperative; no acute distress and not ill appearing Neck normal visual inspection Respiratory normal respiratory effort and able to speak in complete sentences; no respiratory distress, no labored breathing, no retractions, no cough and no audible wheezes Auscultation: lungs clear to auscultation bilaterally; no crackles, no rales, no rhonchi and no wheezes Cardiovascular Rate/Rhythm: regular rate and regular rhythm Heart Sounds: normal S1 and normal S2; no gallop, no murmur and no cardiac rub Vessels: posterior tibial pulses present Extremities: no pedal edema and no edema Gastrointestinal (Abdomen) Inspection/Auscultation: abdomen normal to inspection and normal bowel sounds; abdomen not distended Percussion/Palpation: abdomen soft; abdomen nontender, no guarding, abdomen not rigid and no abdominal mass Skin right leg rash improving, appears to be healing like purpura. left leg rash unchanged. Discharge Data Allergies Allergy/AdvReac Type Severity Reaction Status Date / Time No Known Allergies Allergy Verified 08/15/19 14:56 Consultations 08/15/19 16:47 ED Decision to Admit Stat Ordered Studies 08/15/19 14:01 US venous doppler LE BI Stat 08/15/19 18:42 US duplex renal artery Routine Hospital Course (1) Vasculitis: 74 yo M with gout, HTN, Dm2, with bilateral lower extremity rash con cerning for vasculitis. 1) Rash: Given concern for underlying autoimmune disease vs. vasculitis, wide array of labs ordered for confirmation and narrowing of differential. His creatinine was elevated at 1.68 on admission, so a renal ultrasound with doppler was performed to ensure no renal disease was present. Ultrasound returned normal without artery, vein or parynchymal abnormalities. Creatinine normal at discharge. Labs received: ESR 66, CRP 11. IgA, IgM, IgG within normal limits. UA negative except for 1+ blood. Pending lab results: KARMEN screen, ANCA, Complement C3, Complement C4, Total Complement, punch biopsy of right leg Patient advised to follow up with PCP for remaining lab work and ensuing workup. All other medical conditions managed per home regimen. (2) Gout, joint: (3) Hypertension: (4) Obesity, Class I, BMI 30-34.9: (5) Type 2 diabetes mellitus: Total Time Total Time Spent Total Time Spent (In Minutes): see attending attestation Discharge Plan Discharge Items Patient Disposition: Home - Self-Care Reason For Visit: RASH,CELLULITIS Discharge Diagnosis: rash, cellulitis Activity: Resume your previous activity Non-emergency contact: Primary Care Provider Call non-emergency contact if: you have any medication questions and your symptoms worsen Follow-up/Referrals: Jarett Kam, [Primary Care Provider] - Diet: Carb Consistent or DM2 Addtl Attending Provider Instructions: You were evaluated in the hospital for rash with concern for spreading cellulitis. Given the appearance of the rash, a number of tests were drawn to see if an autoimmune condition was causing the rash. Some of these tests are still pending; your PCP has access to them and will be able to follow up the results with you as well as next steps. During your stay we also performed a punch biopsy of your right leg rash as part of the workup to see if a vasculitis or blood vessel inflammation is present. The results of that test will also be available to your PCP in 3-7 days. If you have any questions about your health, or if you have worsening symptoms contact your primary care provider. Pending Studies at Discharge: Yes (C3, C4, C5 complement, punch biopsy pathology) Stand-Alone Forms: [employer], Smoking Cessation Medications and DC Order Prescriptions: Continued allopurinol 300 mg tablet 150 mg PO QPM Qty: 90 RF: 3 atorvastatin [Lipitor] 10 mg tablet 10 mg PO QAM RF: 0 carvedilol [Coreg] 3.125 mg tablet 3.125 mg PO BID RF: 0 amlodipine [Norvasc] 10 mg tablet 10 mg PO QAM RF: 0 lisinopril [Zestril] 40 mg tablet 40 mg PO QAM RF: 0 hydrochlorothiazide 12.5 mg tablet 12.5 mg PO QAM RF: 0 Discontinued cephalexin [Keflex] 500 mg capsule 500 mg PO QID Qty: 40 RF: 0 Discharge Orders: Discharge Order (Routine); Ordered 08/17/19 Ordered By: Nasrin Otero Admission Data Admit Date/Time: 08/15/19 17:35 Attending Provider: Zaid Orozco Admit Provider: Nasrin Otero Primary Care Provider: Jarett Kam Other Providers: Vini Castorena Other Interventions: Discharge Summary Assessment (RN) Last Done: 08/17/19 11:00 DC Date/Time DO NOT enter until pt leaves facility: 08/17/19 12:31 Supervising Physician Co-Signing Physician Notes Attending attestation Pt seen and examined in concert with Dr. Otero. In agreement with the documented findings as noted in the resident documentation with any exceptions or additions as noted here. Persistent but improving rash and swelling of the LE. On examination, S1/S2 nl RRR no MCG. CTAB. Abd NT/ND BS+ve. LLE with confluent erythematous indurated rash c/w cellulitis, RLE with punctate nonblanching ?petechial with central clearing and scattered distal petechiae. Rashes improving. Rash - likely vascular, Cx continue to be negative without growth. Will d/c off abx for outpatient evaluation with send out labs and pathology from punch biopsy with precautions and will re-evaluate as outpatient. Else see resident documentation as noted. Resident Activity Tracking Resident Involvement: Resident Care Provided Care Provided: Adult Hospital Medicine
[2019-08-23 19:35] LABS: ANCA Screen C-ANCA POS (Negative); Anti Nuclear Antibody Screen NEGATIVE (NEGATIVE); Complement C3 200 mg/dL (82-185); Complement Total(CH50) >60 U/mL (31-60)
== END 2019-08-17 12:31 | disposition home or self-care (01) ==
LOC: 2W 13:48 → ED 13:48 → SUATTDRO 17:35 → 2W 18:27 → 3N 08-16 07:39